=== PATIENT | female | born 1995 | race Caucasian/White ===

== ENCOUNTER 2018-01-09 04:22 | Emergency (ER) | payer OTHER ==
[~2018-01-09] VITALS: Ht 170.2 cm; Wt 65.8 kg
[~2018-01-09 04:22] MED LIST: PENICILLIN V P500 MG PO; ZOFRAN ODT4 MG PO
[2018-01-09 04:25] VITALS: BP 128/78
[2018-01-09] MEDS ORDERED: AMOXICILLIN 50500 MG PO (04:34)
== END 2018-01-09 04:38 | disposition home or self-care (01) ==
LOC: M.ERS 04:22
DX: J06.9 Acute upper respiratory infection, unspecified (principal)